=== PATIENT | female | born 1970 | race Hispanic/Latino ===

== ENCOUNTER 2021-08-17 12:19 | Emergency (ER) | payer OTHER ==
[~2021-08-17] VITALS: Ht 152.4 cm; Wt 74.8 kg
[~2021-08-17 12:19] MED LIST: LISINOPRIL5 MG PO; METFORMIN HCL500 MG PO; NEURONTIN300 MG PO
[2021-08-17] MEDS ORDERED: ONDANSETRON HCL INJ 2MG/ML 2ML 2 MG/ML VIAL IV STA (12:28)
[2021-08-17] MEDS ORDERED: SODIUM CHLORIDE 0.9% 1000ML 1,000 ML IV SCH (12:30)
[2021-08-17] MEDS ORDERED: JARDIANCE10 MG (12:41)
[2021-08-17] MEDS ORDERED: HYDROCHLOROTH12.5 MG (12:41)
[2021-08-17] MEDS ORDERED: METOPROLOL TART50 MG PO (12:41)
[2021-08-17] MEDS ORDERED: TRADJENTA5 MG (12:41)
[2021-08-17] MEDS ORDERED: SODIUM CHLORIDE 0.9% 1000ML 1,000 ML ONE (13:01)
[2021-08-17] MEDS ORDERED: ONDANSETRON HCL INJ 2MG/ML 2ML 2 MG/ML VIAL ONE (13:01)
[2021-08-17] MEDS ORDERED: MECLIZINE HCL 12.5 MG TAB ONE (13:43)
[2021-08-17] MEDS ORDERED: SODIUM CHLORIDE 0.9% 50ML 50 ML ONE (13:58)
[2021-08-17] MEDS ORDERED: IOPAMIDOL 370 MG/ML 200 ML INFUS..BTL INJ ONE (13:58)
[2021-08-17] MEDS ORDERED: MECLIZINE HCL 12.5 MG TAB PO ONE (14:00)
[2021-08-17] MEDS ORDERED: DIAZEPAM INJ 5 MG/ML 2 ML IV ONE (15:30)
[2021-08-17] MEDS ORDERED: DIAZEPAM INJ 5 MG/ML 2 ML ONE (15:36)
[2021-08-17] MEDS ORDERED: DIAZEPAM5 MG PO (16:31)
[2021-08-17] MEDS ORDERED: ONDANSETRON ODT4 MG PO (16:33)
== END 2021-08-17 16:56 | disposition home or self-care (01) ==
LOC: FSED 12:35
DX: H81.10 Benign paroxysmal vertigo, unspecified ear (principal); E11.65 Type 2 diabetes mellitus with hyperglycemia; I10 Essential (primary) hypertension; E78.5 Hyperlipidemia, unspecified
CPT/HCPCS: 36415; 70450; 71260; 80048; 81003; 82553; 82948; 84484; 85025; 85379; 96374; 96375; 99284; J2405; J3360; J7030; J8597; Q9967; 93005

== ENCOUNTER 2022-02-18 03:35 | Emergency (ER) | payer OTHER ==
[~2022-02-18] VITALS: Ht 162.6 cm; Wt 79.4 kg
[~2022-02-18 03:35] MED LIST changes: +DIAZEPAM5 MG PO; +HYDROCHLOROTH12.5 MG; +JARDIANCE10 MG; +METOPROLOL TART50 MG PO; +ONDANSETRON ODT4 MG PO; +TRADJENTA5 MG
[2022-02-18] MEDS ORDERED: HYDROXYZINE HCL 25 MG TAB PO ONE (04:00)
== END 2022-02-18 07:40 | disposition home or self-care (01) ==
LOC: ER 03:41
DX: E11.40 Type 2 diabetes mellitus with diabetic neuropathy, unspecified (principal); I10 Essential (primary) hypertension; E78.5 Hyperlipidemia, unspecified
CPT/HCPCS: 99283; J3410